=== PATIENT | male | born 1955 | race Caucasian/White ===

== ENCOUNTER 2021-10-17 14:04 | Emergency (ER) | payer OTHER, SELFPAY ==
--- NOTE | ~2021-10-17 | XR_ITS ---
EXAMINATION: XR KNEE, LEFT CLINICAL INFORMATION: Foreign body COMPARISON: None TECHNIQUE: Four views of the left knee. FINDINGS: Positive for foreign body. This is felt to lie within the soft tissues of the infrapatellar region. Part of this foreign body could be within the joint. This foreign body is linear measuring 2.1 cm. Courses anterior to posterior Foreign body is Approximately 1 to 2 mm deep to the skin layer. No bony fracture is seen. XR/XR knee LT 4V IMPRESSION: Linear foreign body anteriorly as described
[2021-10-17 14:09] VITALS: BP 125/83; PULSE 81; RESP 18; TEMP 37; O2SAT 100; BMI 31.0
--- NOTE | 2021-10-17 15:01 | ED.LOWEXIN ---
HPI - Extremity Injury (Lower) General Chief Complaint: Extremity Injury, Lower Stated Complaint: pw needle at work Time Seen by Provider: 10/17/21 14:54 Source: patient Mode of arrival: wheelchair Limitations: no limitations History of Present Illness HPI Narrative: Patient presents to the emergency department coming from [employer]. Today while at work, patient kneeled on the ground, believe a sewing needle went into his right knee and proke off. Reports he can feel something in the front of his knee by the knee cap, painful to walk on. Reports last tetanus vaccine 2 years ago. Related Data Previous Rx's Medication Instructions Recorded cephalexin 500 mg capsule 500 mg PO QID 7 Days #28 cap 10/17/21 doxycycline hyclate 100 mg capsule 100 mg PO BID 7 Days #14 cap 10/17/21 tramadol 50 mg tablet 50 mg PO BID PRN #7 tab 10/17/21 Allergies Allergy/AdvReac Type Severity Reaction Status Date / Time ibuprofen [From Motrin] AdvReac Stomach Verified 10/17/21 14:10 Upset Review of Systems Review of Systems: Constitutional: No weight loss, fever, chills, weakness or fatigue. Skin: No rash or itching. Cardiovascular: No chest pain. No palpitations. Respiratory: No shortness of breath, cough or sputum production. Musculoskeletal: No muscle pain, back pain. Positive knee pain Psychiatric: No depression or anxiety. Yes all other systems are reviewed and are negative [facility] Past Medical History Attestation statement: The following information was validated with the patient. Source: old records reviewed Social History Social History Advance Directives: No Advance Directives Information Provided: No Physical Exam Vital Signs: Vital Signs: Last Vital Signs Temp 98.6 F 10/17/21 14:09 Pulse 81 10/17/21 14:09 Resp 18 10/17/21 14:09 BP 125/83 10/17/21 14:09 Pulse Ox 100 10/17/21 14:09 BMI result Body Mass Index 31.0 Vital signs have been reviewed as normal and appeared to be correct. Blood pressure normal.? Heart rate normal.? Respiration rate normal. Temperature normal.? Oxygen saturation normal. Appearance: Alert.?Oriented to person, place and time. No acute distress.?Normal affect. Eyes: Pupils equal, round and reactive to light.? ENT: Pharynx normal.?? Neck: Normal inspection.? Neck supple.?? CVS: Heart sounds normal. Normal heart rate and rhythm.? Pulses normal.?? Respiratory: No respiratory distress.? Lung sounds clear to auscultation bilaterally?? Abdomen: Soft and non-tender. Skin: Skin warm and dry.? Normal skin color.? Extremities: No lower extremity edema.? Left knee with point tenderness to the medial infrapatellar region, area concerning for possible palpable foreign body Neuro: Moves all extremities spontaneously. Sensation intact bilaterally. No motor deficits. Ambulates with normal steady gait. Course Course Course Narrative: Patient is a 66-year-old male no past medical history of arthritis presenting for evaluation of acute left knee pain after injury while at work. Patient is concern for possible retained foreign body, a sewing needle. Will obtain x-ray for further evaluation. Patient is up-to-date on tetanus. No current erythema, warmth, swelling, or effusion present. Reevaluation(s) Reevaluation #1: X-ray imaging positive for foreign body, thought to be within the soft tissues of the infrapatellar region, possibly within the joint space, measures 2.1 cm. I consulted orthopedics, Liza VALENCIA, who recommends no further imaging required at this time, and advised outpatient follow-up for further evaluation and treatment. Patient provided with crutches, advised to use Tylenol as needed for pain, provided with a new prescription for tramadol to use if Tylenol is not helping, advised not to drive or operate machinery for 8 hours after taking this medication, Aris provided with antibiotics Keflex and doxycycline for infection prophylaxis, discussed reasons to return back to emergency department, patient to follow-up with orthopedics outpatient. Time: 15:45 MDM - Extremity Injury (Lower) Medical Records Attestation: I reviewed the patient's medical records. Imaging Data XR knee: Radiologist's impression: FINDINGS: Positive for foreign body. This is felt to lie within the soft tissues of the infrapatellar region. Part of this foreign body could be within the joint. This foreign body is linear measuring 2.1 cm. Courses anterior to posterior Foreign body is Approximately 1 to 2 mm deep to the skin layer. No bony fracture is seen.? XR/XR knee LT 4V IMPRESSION: Linear foreign body anteriorly as described Discharge Plan Discharge Clinical Impression: Foreign body of left knee Patient Disposition: Home, Self-Care Additional Instructions: The x-ray shows a foreign body to your left knee, You have been given a course of antibiotics, it is important to complete this entire course. You will need to follow-up with orthopedics for removal, you have been provided with their contact information, please call the office tomorrow to schedule appointment. Use crutches to avoid putting weight on the left leg. Prescriptions: New cephalexin 500 mg capsule 500 mg PO QID 7 Days Qty: 28 0RF doxycycline hyclate 100 mg capsule 100 mg PO BID 7 Days Qty: 14 0RF tramadol 50 mg tablet 50 mg PO BID PRN (Reason: pain) Qty: 7 0RF Referrals: Liza Shepherd PA-C [Physician Mobility Developer] - 3 days Interventions: ED Discharge Assessment Last Done: 10/17/21 16:18 Discharge Date/Time: 10/17/21 16:20
== END 2021-10-17 16:20 | disposition home or self-care (01) ==
PROVIDERS: Emergency Provider Emergency Medicine; PCP Family Medicine
DX: Z04.2 Encounter for examination and observation following work accident (principal); S80.252A Superficial foreign body, left knee, initial encounter; W26.8XXA Contact with other sharp object(s), not elsewhere classified, initial encounter; Y93.9 Activity, unspecified; Y92.63 Factory as the place of occurrence of the external cause; Y99.0 Civilian activity done for income or pay
CPT/HCPCS: 73564; 99283

== ENCOUNTER → 2021-10-19 12:19 | Outpatient (BNVA) | payer OTHER, SELFPAY | PROVIDERS: PCP Family Medicine; Visit Provider Physician Assistant | DX: S80.252A Superficial foreign body, left knee, initial encounter (principal) | CPT/HCPCS: 99202 ==

== ENCOUNTER 2021-10-24 05:56 | Day surgery (SDC) | payer OTHER, SELFPAY ==
--- NOTE | 2021-10-23 08:12 | HO.ANESPROP2 ---
Documented by User: Amina Ashley NP 10/23/21 08:12 HPI - Anesthesia Eval Consult details Narrative: 66yo M for Left Foreign Body Removal from knee PMFSH Active Problems Active Problems: All Active Problems (Updated 10/19/21 @ 13:59 by Liza Shepherd PA-C) Foreign body of left knee (Acute) Past Medical History Medical History (Updated 10/19/21 @ 13:59 by Liza Shepherd PA-C) Hypertension Surgical History Surgical History (Updated 10/24/21 @ 06:23 by Nusrat Conner RN) History of mandibular surgery Hx of colonoscopy Hx of tonsillectomy Social History Social History (Updated 10/19/21 @ 12:24 by Marleny Bravo CMA) Patient Tobacco Use Status: Former Tobacco user Are you DNR?: No Advance Directives: No Advance Directives Information Provided: Yes Current occupational status: employed Current occupation: [employer] Allergies Allergy/AdvReac Type Severity Reaction Status Date / Time ibuprofen [From Motrin] AdvReac Stomach Verified 10/17/21 14:10 Upset Home Medications Medication Instructions Recorded Confirmed Last Taken Type lisinopril 20 2 tab PO DAILY 10/24/21 10/24/21 10/23/21 History mg-hydrochlorothiazide 12.5 mg tablet Exam Exam Date and Time: October 23, [id number] Assessment and Plan Assessment Anesthesia Assessment: Chart Reviewed Documented by User: Goyo Tolbert MD 10/24/21 17:38 PMFSH Past Medical History Medical History (Updated 10/19/21 @ 13:59 by Liza Shepherd PA-C) Hypertension Family History Family history of problems with anesthesia: No Surgical History Surgical History (Updated 10/24/21 @ 06:23 by Nusrat Conner RN) History of mandibular surgery Hx of colonoscopy Hx of tonsillectomy History of Problems with Anesthesia: No Social History Social History (Updated 10/19/21 @ 12:24 by Marleny Bravo CMA) Patient Tobacco Use Status: Former Tobacco user Are you DNR?: No Advance Directives: No Advance Directives Information Provided: Yes Current occupational status: employed Current occupation: [employer] Allergies Allergy/AdvReac Type Severity Reaction Status Date / Time ibuprofen [From Motrin] AdvReac Stomach Verified 10/17/21 14:10 Upset Home Medications Medication Instructions Recorded Confirmed Last Taken Type lisinopril 20 2 tab PO DAILY 10/24/21 10/24/21 10/23/21 History mg-hydrochlorothiazide 12.5 mg tablet Exam Airway Mallampati Class: III TM Dist: >3cm Neck ROM: Full Loose/Missing/Broken Teeth: Yes (Chipped , poor dentition , caps ) Heart: S1, S2 Lungs: b/l breath sounds Assessment and Plan Assessment Anesthesia Assessment: Anesthesia Plan Discussed Final Anesthetic Review Family History of Problems with Anesthesia: No History of Problems with Anesthesia: No NPO: Yes ASA Class: II Final Preanesthetic Review: Meds/Allgs Chart Reviewed, Consent Obtained/Reviewed and Anes Risks/Benef Reviewed Patient Risk: Intermediate Procedure Risk: Intermediate Anesthetic Plan Anesthetic Plan: MAC: Disposition: Standard PACU
[2021-10-24 06:04] VITALS: BP 168/95; PULSE 64; RESP 17; TEMP 36.1; O2SAT 96; BMI 31.0
[2021-10-24] MEDS: Lactated Ringers 1,000 ML 100 ML IVCONT (06:31)
--- NOTE | 2021-10-24 07:34 | MHC.SHP ---
Pre-Procedural Eval Section A Date of Service: 10/24/21 The patient is an INPATIENT: No Changes since office visit: Yes Patient answered all questions; No Cold of Flu in the past 2 weeks, No New Medical Problems and No Changes in Medication The History & Physical has been completed within 30 days and I have reviewed it.: Yes Section B Chief Complaint: foreign body left knee Allergies: Allergies Allergy/AdvReac Type Severity Reaction Status Date / Time ibuprofen [From Motrin] AdvReac Stomach Verified 10/17/21 14:10 Upset Plan I have reviewed the history and physical and performed a pertinent physical examination on my patient. No changes have occurred unless specified.
[2021-10-24 09:03] VITALS: BP 122/69; PULSE 70; RESP 16; TEMP 36.9; O2SAT 98
[2021-10-24 09:21] VITALS: BP 116/76; PULSE 67; RESP 16; TEMP 37.1; O2SAT 96
--- NOTE | 2021-10-24 10:43 | P.BOP_ITS ---
Brief Operative Note Date of Service: 10/24/21 Pre-op diagnosis: foreign body left knee Post-op diagnosis: same Procedure: removal of foreign body , deep, left knee intra-operative use of microscope Surgeon: Mark Juarez MD Anesthesia: MAC and local Was an Senior Reactor Operator used for this Procedure?: No Estimated blood loss (mL): 20 IV fluids (mL): 500 Pathology: other (foreign body) Condition: stable Disposition: PACU
--- NOTE | 2021-10-26 15:38 | W.PM.OPN ---
Operative Note Operative Note Date of Service: 10/24/21 Narrative: Date of Service: 10/24/21 Pre-op diagnosis: foreign body left knee Post-op diagnosis: same Procedure: removal of foreign body , deep, left knee intra-operative use of microscope Surgeon: Mark Juarez MD Anesthesia: MAC and local Was an Community Relations Coordinator used for this Procedure?: No Estimated blood loss (mL): 20 IV fluids (mL): 500 Pathology: other (foreign body) Condition: stable Disposition: PACU Procedure in detail: Patient was brought to the operating room and under sedation local was injected around his left patellar tendon. There was a foreign body evident on x-ray but I could not appreciate using ultrasound her visual inspection. Therefore the microscope was brought in and a 1.5 cm incision was made over the area involvement. Dissection was taken down to the patellar tendon and then under microscopic visualization I was able to see a rent in the tendon and through careful dissection was able to visualize a very small tip of the needle that had penetrated the patellar tendon. This was removed. I then irrigated copiously and closed the skin with absorbable suture and skin glue. Patient was placed in sterile dressing extubated brought to recovery room stable condition there were no known complications.
== END 2021-10-24 10:10 | disposition home or self-care (01) ==
PROVIDERS: PCP Family Medicine; Visit Provider Orthopaedic Surgery
PROC: (CPT 27372; principal; 2021-10-24 07:30)
DX: S80.252A Superficial foreign body, left knee, initial encounter (principal); X50.1XXA Overexertion from prolonged static or awkward postures, initial encounter; Y93.89 Activity, other specified; Y92.69 Other specified industrial and construction area as the place of occurrence of the external cause; Y99.0 Civilian activity done for income or pay; I10 Essential (primary) hypertension; Z79.899 Other long term (current) drug therapy; Z88.8 Allergy status to other drugs, medicaments and biological substances; Z87.891 Personal history of nicotine dependence
CPT/HCPCS: 27372; 88300; J0690; J1100; J2250; J2405; J3010

== ENCOUNTER → 2021-11-05 12:08 | Outpatient (BNVA) | payer OTHER, SELFPAY | PROVIDERS: PCP Family Medicine; Visit Provider Physician Assistant | DX: S80.252A Superficial foreign body, left knee, initial encounter (principal) ==

== ENCOUNTER → 2024-04-15 09:28 | Outpatient (BNVA) | payer OTHER, SELFPAY | PROVIDERS: PCP Family Medicine; Visit Provider Physician Assistant Medical | DX: S40.012A Contusion of left shoulder, initial encounter (principal); S50.02XA Contusion of left elbow, initial encounter; S20.212A Contusion of left front wall of thorax, initial encounter; S51.012A Laceration without foreign body of left elbow, initial encounter; W18.09XA Striking against other object with subsequent fall, initial encounter | CPT/HCPCS: 71101; 73030; 73080; 99204 ==

== ENCOUNTER → 2024-04-26 08:55 | Outpatient (BNVA) | payer OTHER, SELFPAY | PROVIDERS: PCP Family Medicine; Visit Provider Physician Assistant Medical | DX: S40.012A Contusion of left shoulder, initial encounter (principal); S80.02XA Contusion of left knee, initial encounter; S50.02XA Contusion of left elbow, initial encounter; S20.212A Contusion of left front wall of thorax, initial encounter; W18.09XA Striking against other object with subsequent fall, initial encounter | CPT/HCPCS: 99213 ==

== ENCOUNTER → 2024-05-10 08:41 | Outpatient (BNVA) | payer OTHER, SELFPAY | PROVIDERS: PCP Family Medicine; Visit Provider Physician Assistant Medical | DX: S40.012D Contusion of left shoulder, subsequent encounter (principal); S50.02XD Contusion of left elbow, subsequent encounter; S20.211D Contusion of right front wall of thorax, subsequent encounter; S80.01XD Contusion of right knee, subsequent encounter; S51.012D Laceration without foreign body of left elbow, subsequent encounter; S93.492D Sprain of other ligament of left ankle, subsequent encounter; W18.09XD Striking against other object with subsequent fall, subsequent encounter | CPT/HCPCS: 99213 ==

== ENCOUNTER 2024-05-17 07:56 | Outpatient (AMB) | payer OTHER, SELFPAY ==
--- NOTE | 2024-05-17 08:28 | A.OFFVIS_ITS ---
Intake Visit Reasons: New prob- LT high ankle injury Intake Note: Vega is a 68 year old male who presents to the office today for a LT ankle and martinez injury, DOI 04/14/24. Patient states his right foot got stuck in a pallet and he twisted and fell on his left side. Patient states he is still having pain and swelling when walking to much. He has tried wrapping his ankle with no relief. Denies numbness and tingling. *[employer]: walking for 12 - 13hrs a day* Allergies ibuprofen [From Motrin] Adverse Reaction (Verified 05/17/24 08:36) Stomach Upset HPI HPI New prob- LT high ankle injury: Details: 68-year-old male who presents in the office today, for an evaluation of left ankle injury. The patient was seen in the [facility] on 05/11/24, status post a twist and fall which occurred on 04/14/24. His right foot got stuck between the pallet and fell on his left side. He started having left shoulder, left elbow and left ankle pain after the fall. He was recommended to take Tylenol 1000 mg for pain relief. He was referred to [facility] Orthopedics for further evaluation. While in the office today, the patient reports persistent pain and edema in the left ankle with prolonged ambulation. He has tried wrapping his ankle without any relief. He denies any numbness or tingling. The patient works in a [employer] and states he will be ambulating 12-13 hours a day. [facility] Medical History Hypertension Surgical History History of mandibular surgery Hx of colonoscopy Hx of tonsillectomy Social History (Updated 05/17/24 @ 08:38 by Grace Farr) Patient Tobacco Use Status: Former Tobacco user Current occupational status: employed Current occupation: [employer] Review of Systems Const All systems reviewed & are unremarkable except as noted in HPI and below Physical Exam Const General: cooperative, healthy appearing and no acute distress Resp Effort & Inspection: normal respiratory effort and able to speak in complete sentences Cardio Rate: regular rate Peripheral pulses: Peripheral pulses 2+ throughout GI Palpation (GI): Soft to palpation Skin Lesions: no lesions Rashes: no rashes Extrem Other: Left ankle: Normal to inspection. No ecchymosis, erythema, or edema. The patient is able to demonstrate dorsiflexion, plantar flexion, pronation and supination. Pain with the anterior drawer. Sensation intact. Pedal pulse intact. Assessment & Plan Assessment & Plan (1) Osteoarthritis of left ankle: Code(s): M19.072 - Primary osteoarthritis, left ankle and foot Category: Medical (2) Left ankle sprain: Code(s): S93.402A - Sprain of unspecified ligament of left ankle, initial encounter Category: Medical Plan Mr. Quarles is a 68-year-old male who presents in the office today, for an evaluation of left ankle injury. The patient was seen in the [facility] on 05/11/24, status post a twist and fall which occurred on 04/14/24. His right foot got stuck between the pallet and fell on his left side. He started having left shoulder, left elbow and left ankle pain after the fall. He was recommended to take Tylenol 1000 mg for pain relief. He was referred to [facility] Orthopedics for further evaluation. While in the office today, the patient reports persistent pain and edema in the left ankle with prolonged ambulation. He has tried wrapping his ankle without any relief. He denies any numbness or tingling. The patient works in a [employer] and states he will be ambulating 12-13 hours a day. The patient was provided a tall walking boot, off the shelf. He was given an instruction that he should wear the boot while at work and to remain out of the brace when he is at home to work on ankle range of motion. Ankle range of motion exercises were demonstrated to the patient while in the office today. He was referred to physical therapy. An order for an MRI of the left ankle was placed today to further evaluate the integrity of the ankle and surrounding structures. He will continue to remain on the same work restrictions. Follow-up will be 6 weeks, or sooner if needed. X-rays of the left ankle, which were obtained while in the office today and were reviewed by me, Mamta Cummings PA-C, revealed: Negative for any fracture or dislocation. Significant for osteoarthritis. Orders: Orders ankle LT wo con 05/17/24 M19.072 - Primary osteoarthritis, left ankle and foot, S93.402A - Sprain of unspecified ligament of left ankle, initial encounter XR ankle LT min 3V 05/17/24 M25.579 - Pain in unspecified ankle and joints of unspecified foot PT Evaluation and Treatment 05/17/24 M19.072 - Primary osteoarthritis, left ankle and foot, S93.402A - Sprain of unspecified ligament of left ankle, initial encounter Patient Instructions: Scribed by Dyan Guzmán medical biller, for Mamta Cummings PA-C on 05/17/24 at 8:47 am EST. Coding Level of Care Code Est Pt Level 3 (64321) Complex EM visit Add On G2211 Diagnoses Osteoarthritis of left ankle M19.072 Left ankle sprain S93.402A
== END 2024-05-17 09:05 | disposition home or self-care (01) ==
PROVIDERS: PCP Family Medicine; Visit Provider Physician Assistant
DX: M19.072 Primary osteoarthritis, left ankle and foot (principal); S93.402A Sprain of unspecified ligament of left ankle, initial encounter
CPT/HCPCS: 99213; G2211

== ENCOUNTER 2024-05-17 08:55 | Outpatient (REF) | payer OTHER, SELFPAY ==
--- NOTE | ~2024-05-17 | XR_ITS ---
EXAMINATION: XR LEFT ANKLE CLINICAL INFORMATION: Pain in unspecified ankle and joints of unspecified foot M25.579. COMPARISON: None available TECHNIQUE: AP, lateral, and mortise views of the left ankle. FINDINGS: No fracture. Alignment is anatomic. No erosions. Joint spaces are maintained. Soft tissues are normal. Small inferior calcaneal spur. XR/XR ankle LT min 3V IMPRESSION: 1. No fracture. 2. Small inferior calcaneal spur. Electronically signed by: Alicia Lorenz MD 05/30/2024 12:03 PM NAB[facility]
== END 2024-05-17 08:56 | disposition home or self-care (01) ==
LOC: HO.HOSX 08:55
PROVIDERS: Visit Provider Physician Assistant
DX: M25.572 Pain in left ankle and joints of left foot (principal); M19.072 Primary osteoarthritis, left ankle and foot; S93.402A Sprain of unspecified ligament of left ankle, initial encounter
CPT/HCPCS: 73610; 99212

== ENCOUNTER 2024-05-28 06:39 | Outpatient (RCR) | payer OTHER, SELFPAY ==
--- NOTE | 2024-05-17 08:52 | MHC.PT.EP ---
[facility] [place] [facility] [place] [facility] [place] [facility] [address] [phone] F: [phone] F: [phone] F: [phone] F: [phone] Physical Therapy Plan of Care Date of Evaluation: 05/17/24 Date of Surgery: Diagnosis: Fall L shoulder contusion/ derangement, L knee injury, L high ankle sprain. Assessment: Pt is a 68 y/o RHD male with Hx of HTN referred to PT for eval and treat after fall at work 1 month ago with emphasis on his L shoulder; Pt reports initially had a large hematoma of his lateral L arm though this is largely resolved he persists with decreased tolerance and ability for reaching high shelves, dressing pullovers, lifting objects of weight, laying on L shoulder, and disturbed sleep secondary to decreased L shoulder ROM and strength, increased tissue tension L scapular mms, TTP of L Teres area and anterior L shoulder and pain with activity. Pt is deemed an appropriate candidate to receive skilled PT services to address their physical impairments in order to improve their functional ability. Frequency and Duration: The patient will be seen 2 x / wk x 4 wks. Short Term Goals: Initiate home program. Improve baseline pain to <5/10; initial 7-9/10. Snf Goals: I with home program. Pt will be able to place object on high shelf with managed Sx; initial: 6/10 difficulty, Pt will report no longer disturbed of sleep d/t shoulder pain; initial 1/4 disturbed. Pt will be improve L shoulder IR strength by at least 1/2 MMT grade; initial 4-/5 and painful. Improve SPADI outcome measure by at least 13 points. Treatment Plan: Modalities to reduce pain, spasms and effusion. Manual therapy to restore motion and function. Therapeutic exercise to improve strength and flexibility. Neuromuscular re-education for posture and balance. Therapeutic activities to return to functional activities of daily living. Electronically signed by: Josh Rosas PT. Please sign and return to therapist. Thank you for your referral.
== END 2025-05-18 08:56 | disposition home or self-care (01) ==
LOC: HO.PT 06:39
PROVIDERS: PCP Family Medicine; Visit Provider Physician Assistant Medical
DX: S40.012A Contusion of left shoulder, initial encounter (principal); Z91.81 History of falling; M25.562 Pain in left knee; S93.402A Sprain of unspecified ligament of left ankle, initial encounter
CPT/HCPCS: 97110; 97161

== ENCOUNTER → 2024-05-31 08:34 | Outpatient (BNVA) | payer OTHER, SELFPAY | PROVIDERS: PCP Family Medicine; Visit Provider Physician Assistant Medical | DX: S40.012D Contusion of left shoulder, subsequent encounter (principal); S50.02XD Contusion of left elbow, subsequent encounter; S20.212D Contusion of left front wall of thorax, subsequent encounter; S80.02XD Contusion of left knee, subsequent encounter; S93.402D Sprain of unspecified ligament of left ankle, subsequent encounter; M24.812 Other specific joint derangements of left shoulder, not elsewhere classified; W18.09XD Striking against other object with subsequent fall, subsequent encounter | CPT/HCPCS: 99213 ==

== ENCOUNTER 2024-06-05 09:03 | Outpatient (REF) | payer OTHER, SELFPAY ==
--- NOTE | ~2024-06-05 | MR_ITS ---
CLINICAL HISTORY: S93.402A - Sprain of unspecified ligament of left ankle, initial encounter MR left ankle without gadolinium Comparison: DX/NE/SR - XR ANKLE LT MIN 3V - 05/17/24 08:00 EST Findings: No acute fractures. No pathologic bone lesions. Mild subchondral degenerative marrow edema and microcyst formation within the anteroinferior tibia adjacent to the tibiotalar joint. Periarticular osteophyte formation at the talonavicular joint. No joint effusion. Intact anterior and posterior talofibular, calcaneofibular, and deltoid ligaments. Small amount of fluid surrounds the tibialis posterior, flexor digitorum longus, flexor hallucis longus, peroneus longus and brevis tendons. There is split type tearing of the peroneus brevis tendon.Flexor, extensor, and peroneal tendons are otherwise intact. Multiple small high T2 intensity foci within the Achilles tendon Intact plantar fascia. IMPRESSION: 1. Split type tearing of the peroneus brevis tendon. 2. Tenosynovitis of the medial and lateral flexor tendons. 3. Tibiotalar and talonavicular joint osteoarthritis. 4. Low-grade tears of the Achilles tendon. This document has been electronically signed by: Isabell Ash MD on 06/07/2024 17:52:58
--- NOTE | ~2024-06-05 | MR_ITS ---
CLINICAL HISTORY: DERANGEMENT AND CONTUSION MR left shoulder without gadolinium Comparison: DX/SR - XR SHOULDER LT MIN 2V - 04/15/24 11:31 EST Findings: No acute fracture or pathologic bone lesion. Moderate periarticular osteophyte formation at the acromioclavicular joint. Mild periarticular osteophyte formation at the glenohumeral joint. Type II acromion. No effusion. There is full-thickness tearing with medial retraction and atrophy of the entire supraspinatus tendon at the critical zone. Moderate grade intrasubstance and articular surface tearing of the anterior and mid infraspinatus tendon at the humeral insertion site extending to the musculotendinous junction. Subscapularis tendon is intact. The long head of biceps is intact. There is irregularity and high T2 signal intensity within the posterior superior labrum. IMPRESSION: 1. Full-thickness tearing and atrophy of the supraspinatus tendon. 2. Partial-thickness tearing of the infraspinatus tendon. 3. Acromioclavicular and glenohumeral joint osteoarthritis. 4. Findings suggestive of posterior superior labral tearing. This document has been electronically signed by: Isabell Ash MD on 06/07/2024 16:43:55
== END 2024-06-05 09:04 | disposition home or self-care (01) ==
LOC: HO.MRI 09:03
PROVIDERS: PCP Family Medicine; Visit Provider Internal Medicine
DX: M19.072 Primary osteoarthritis, left ankle and foot (principal); S40.012A Contusion of left shoulder, initial encounter
CPT/HCPCS: 73221; 73721

== ENCOUNTER → 2024-06-05 09:42 | Outpatient (BNV) | payer OTHER, SELFPAY | PROVIDERS: PCP Family Medicine; Visit Provider Radiology Diagnostic Radiology | DX: S43.432A Superior glenoid labrum lesion of left shoulder, initial encounter (principal); S93.402A Sprain of unspecified ligament of left ankle, initial encounter | CPT/HCPCS: 73221; 73721 ==

== ENCOUNTER → 2024-07-02 12:14 | Outpatient (BNVA) | payer OTHER, SELFPAY | PROVIDERS: PCP Family Medicine; Visit Provider Orthopaedic Surgery | DX: M75.102 Unspecified rotator cuff tear or rupture of left shoulder, not specified as traumatic (principal) | CPT/HCPCS: 99212 ==

== ENCOUNTER 2024-07-23 11:13 | Outpatient (AMB) | payer OTHER, SELFPAY ==
--- NOTE | 2024-07-23 11:38 | A.OFFVIS_ITS ---
Intake Visit Reasons: OV - left ankle OA, DOI 04/14/24 Intake Note: Vega is a 68 year old male who presents to the office today for a follow up of his left ankle OA, DOI 04/14/24. Patient states he is feeling better. He notices that PT gave him relief. Allergies ibuprofen [From Motrin] Adverse Reaction (Verified 07/23/24 11:41) Stomach Upset HPI HPI OV - left ankle OA, DOI 04/14/24: Details: Mr. Quarles is a 69-year-old male presents to the office today for routine follow-up of left ankle sprain. At his last appointment on 06/25/2024 we reviewed his MRI and the patient continued with physical therapy in the tall walking boot. He has been attending physical therapy and has noted some mild improvement. [facility] Medical History Hypertension Surgical History History of mandibular surgery Hx of colonoscopy Hx of tonsillectomy Social History Patient Tobacco Use Status: Former Tobacco user Current occupational status: employed Current occupation: [employer] Review of Systems Const All systems reviewed & are unremarkable except as noted in HPI and below Physical Exam Const General: cooperative, healthy appearing and no acute distress Resp Effort & Inspection: normal respiratory effort and able to speak in complete sentences Cardio Rate: regular rate Peripheral pulses: Peripheral pulses 2+ throughout Skin Lesions: no lesions Rashes: no rashes Extrem Other: Left ankle: Normal to inspection. No ecchymosis, erythema, or edema. Patient is able to demonstrate dorsiflexion, plantar flexion, pronation and supination. Negative anterior drawer. Sensation intact. Pedal Pulse intact. Assessment & Plan Assessment & Plan (1) Left ankle sprain: Code(s): S93.402A - Sprain of unspecified ligament of left ankle, initial encounter Category: Medical (2) Osteoarthritis of left ankle: Code(s): M19.072 - Primary osteoarthritis, left ankle and foot Category: Medical Plan Mr. Quarles is a 69-year-old male presents to the office today for routine follow-up of left ankle sprain. At his last appointment on 06/25/2024 we reviewed his MRI and the patient continued with physical therapy in the tall walking boot. He has been attending physical therapy and has noted some mild improvement. While the office today, the patient was educated to discontinue the tall walking boot at this time and transition to a supportive walking shoe. He will continue to attend physical therapy until all sessions are complete. There is no additional orthopedic intervention warranted at this time. He will follow up p.r.n., sooner if needed. Coding Level of Care Code Est Pt Level 3 (95391) Diagnoses Left ankle sprain S93.402A Osteoarthritis of left ankle M19.072
== END 2024-07-23 11:47 | disposition home or self-care (01) ==
PROVIDERS: PCP Family Medicine; Visit Provider Physician Assistant
DX: S93.402A Sprain of unspecified ligament of left ankle, initial encounter (principal); M19.072 Primary osteoarthritis, left ankle and foot
CPT/HCPCS: 99213

== ENCOUNTER → 2024-07-23 11:13 | Outpatient (BNVA) | payer OTHER, SELFPAY | PROVIDERS: PCP Family Medicine; Visit Provider Physician Assistant | DX: S93.402D Sprain of unspecified ligament of left ankle, subsequent encounter (principal); M19.072 Primary osteoarthritis, left ankle and foot | CPT/HCPCS: 99212 ==

== ENCOUNTER 2024-08-02 08:00 | Outpatient (RCR) | payer OTHER, SELFPAY ==
--- NOTE | 2024-07-12 13:12 | MHC.PT.EP ---
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 OF NOTE, HE IS SCHED FOR Lt RTC REPAIR IN 08/2024. OBJECTIVELY, THE Pt HAS DECR ROM Lt ANKLE, LIMITED FLEXIB IN HIPS, (+) LUMBOPELVIC ASYM W LLI INFLUENCE FROM BOOT, STRENGTH DEFICITS IN Lt DISTAL LE, AND FLUCTUATING SORENESS Lt ANTERIOR/ LAT ANKLE. HE IS WORKING REGULAR HOURS (12-13 HR SHIFTS / 4 DAYS / WK A MGR AT [employer]) -> HE NOTES DOES USE A GOLF CART AT WORK TO GET AROUND THE PLANT. FUNCTIONALLY, THE Pt HAS ALTERED GAIT, DECR SQUAT MECH, LIMITED STANDING/ WALKING MEY.. DECR MEY FOR MORE DYNAMIC ADLs. VU IS A DECENT CANDIDATE FOR PT TO ADDRESS THE ABOVE FINDINGS AND GUIDE HIM IN INCR HIS FUNCT INDEPENDENCE. Frequency and Duration: The patient will be seen 2 x WK x 6 WKS Short Term Goals: DECR Lt DISTAL LE/ ANKLE PAIN TO 2-3/10 INITIATE HEP INCR AROM Lt ANKLE; JOSE HIP FLEXIB Lt BOOT WEAN IN 2-3 WEEKS (PER WILFRIDO LANGE,PAC) INCR CORE ENGAGEMENT/ PROX LEs STRENGTH Chief Cook Goals: Pt INDEP W HEP AND SELF SX MGMT TECHN Pt DEMON EFFICIENT GAIT MECH W/O Lt AIRCAST BOOT Pt MAGAN SLS Lt x 15 SEC Pt INCR FUNCTIONAL ACTIVITY MEY EVIDENT W IMPROVED LEFI SCORE , AT EVAL 36/80 WFL STRENGTH Lt LE Treatment Plan: Modalities to reduce pain, spasms and effusion. Manual therapy to restore motion and function. Therapeutic exercise to improve strength and flexibility. Neuromuscular re-education for posture and balance. Therapeutic activities to return to functional activities of daily living. Electronically signed by: STEPHNAE CASTRO PT Please sign and return to therapist. Thank you for your referral.
--- NOTE | 2024-09-06 07:58 | MHC.PT.DC ---
[facility] [place] Office [place] Office [place] Office [address] Evita Marques [address] [phone] F: [phone] F: [phone] F: [phone] F: [phone] Physical Therapy Discharge Report Diagnosis: LEFT ANKLE LIGAMENT SPRAIN-> WEAN OUT OF BOOT IN THE NEXT 2-3 WEEKS Date of Surgery: DOI 04/15/24 Date of Evaluation: 07/12/24 Date of Discharge: 09/06/24 Treatments to Date: 5 Cancellations to Date: 4 No Shows to Date: 0 Discharge Status: Improved Function Independent with HEP Discharge Summary: VU DISPLAYED PROGRESS IN PT, ADDRESSING HIS LEFT ANKLE SPRAIN- HE HAS A HEP AND MORE EFFICIENT GAIT MECH/ IMPROVED FUNCTIONAL MOBILITY TOLERANCE. HE DID NOT ATTEND HIS LAST FEW SCHED APPTS AND, THERFORE, A REASSESSMENT WAS NOT PERFORMED. Electronically signed by: STEPHANE CASTRO, PT Please sign and return to therapist. Thank you for your referral.
== END 2024-09-06 07:59 | disposition home or self-care (01) ==
LOC: HO.PT 08:00
PROVIDERS: PCP Family Medicine; Visit Provider Physician Assistant
DX: S93.402A Sprain of unspecified ligament of left ankle, initial encounter (principal); W18.31XA Fall on same level due to stepping on an object, initial encounter
CPT/HCPCS: 97110; 97112; 97140; 97162

== ENCOUNTER 2024-08-26 09:14 | Outpatient (AMB) | payer OTHER, SELFPAY ==
--- NOTE | 2024-08-26 09:16 | A.OFFVIS_ITS ---
Vital Signs 08/26/24 09:27 Height 5 ft 8 in Weight 215 lb BMI 32.7 Handedness Right Intake Visit Reasons: Pre-Lt RTC 09/01/24 Intake Note: Vega is a 69 year old right hand dominant male who presents today for a pre operative appointment. He is booked for a Left Rotator Cuff Repair 09/01/[address] Juarez. Patient was provided with the Pain Management Agreement to review and sign. Patient was fitted for his ultra sling. Allergies ibuprofen [From Motrin] Adverse Reaction (Verified 08/26/24 09:26) Stomach Upset HPI HPI Pre-Lt RTC 09/01/24: Details: Mr. Quarles is a 69-year-old male who presents to the office today for preoperative history and physical exam pending left shoulder rotator cuff repair on 09/01/[address] Juarez. He has a PMH significant for HLD, HTN, GERD, and chronic constipation. Additionally, he does have an ?allergy to ibuprofen but this causes GI upset in the setting of GERD. [facility] Medical History (Updated 08/17/24 @ 09:42 by Meg Hickey RN) GERD (gastroesophageal reflux disease) Varicose vein of leg Osteoarthritis HLD (hyperlipidemia) Hypertension Surgical History (Updated 08/17/24 @ 09:42 by Meg Hickey RN) H/O left knee surgery (09/2021) Hx of tonsillectomy History of mandibular surgery (~1980) Hx of colonoscopy Social History Housing: House Are you a primary health care technician to a significant other at home: No Do you presently have visiting nurse or other home services: No Patient Tobacco Use Status: Former Tobacco user Tobacco use type: Cigarette Current occupational status: employed Current occupation: [employer] Review of Systems Const All systems reviewed & are unremarkable except as noted in HPI and below Physical Exam Vital Signs: BMI result Body Mass Index 32.7 Const General: cooperative, healthy appearing, no acute distress and well groomed Orientation/consciousness: oriented to person and oriented to place HEENT Head: Yes normal to inspection, Yes normocephalic and Yes atraumatic Eyes General: appearance normal, both eyes and all related structures Alignment and Position: alignment normal Conjunctivae: conjunctivae normal EOM: EOMs intact bilaterally Neck Neck: Yes normal visual inspection and Yes trachea midline Resp Other: No rerpiratory distress Effort & Inspection: normal respiratory effort and able to speak in complete sentences Cardio Other: Palpable radial pulse with no appreciable rythmic abnormalities GI Other: No abdominal distension Back/Spine/Pelvis Cervical Spine: normal cervical lordosis and cervical ROM normal Skin General skin exam: no rashes or lesions noted Neuro General: oriented to person, oriented to place and gait normal Extrem Other: Full passive range of motion left shoulder. Active abduction to 90 with recruitment. Forward flexion to 110. External rotation to 35. Internal rotation L5. He has a positive Whelan and Neer and 4/5 empty can with negative lag and negative lift-off Assessment & Plan Assessment & Plan (1) Rotator cuff tear, left: Code(s): M75.102 - Unspecified rotator cuff tear or rupture of left shoulder, not specified as traumatic Category: Medical Plan Mr. Quarles is a 69-year-old male who presents to the office today for preoperative history and physical exam pending left shoulder rotator cuff repair on 09/01/[address] Juarez. He has a PMH significant for HLD, HTN, GERD, and chronic constipation. Additionally, he does have an ?allergy to ibuprofen but this causes GI upset in the setting of GERD. I discussed in detail the procedure and what to expect pre and post operatively. We discussed the risks, benefits and alternatives to the surgery as well as the rehabilitation course. The risks; which include, but are not limited to infection, bleeding, nerve injury, ongoing pain, swelling, and stiffness, perioperative risk of injury to bones and soft tissues, and blood clots. Post operative medications were sent to the pharmacy,?Percocet and MS Contin, while in the office today. The patient was instructed that?he?should obtain the prescription prior to surgery but should not consume until after the procedure; as these should only be taken for postoperative pain management. Should the patient take these medications before surgery, a refill will not be sent to the pharmacy until their scheduled refill date.?? Oxycodone-acetaminophen 5-325 mg (Percocet) PO Q4-6H PRN, quantity 42 tabs for 7 days and morphine ER 15 mg (MS Contin) PO Q12H PRN, quantity 6 tabs for 3 days? I?ve answered all questions and with their understanding they have consented to move forward with left shoulder rotator cuff repair to be performed with Dr. Juarez. Ex will be picking him up: Melanie [phone] Medications: New oxycodone-acetaminophen 5-325 mg Partial Fill upon patient request. 1 tab PO Q4-6H 7 days PRN 42 tabs 0RF pain morphine ER (MS Contin) Partial Fill upon patient request. 15 mg PO Q12H 3 days 6 tabs 0RF Coding Level of Care Code Global (60386) Diagnoses Rotator cuff tear, left M75.102
[2024-08-26 09:27] VITALS: BMI 32.7
== END 2024-08-26 09:49 | disposition home or self-care (01) ==
LOC: HO.HOS 09:15
PROVIDERS: PCP Family Medicine; Visit Provider Physician Assistant
DX: M75.102 Unspecified rotator cuff tear or rupture of left shoulder, not specified as traumatic (principal)
CPT/HCPCS: 99024

== ENCOUNTER → 2024-08-26 09:14 | Outpatient (BNVA) | payer OTHER, SELFPAY | PROVIDERS: PCP Family Medicine; Visit Provider Physician Assistant | DX: Z01.818 Encounter for other preprocedural examination (principal); M75.102 Unspecified rotator cuff tear or rupture of left shoulder, not specified as traumatic | CPT/HCPCS: 99212 ==

== ENCOUNTER 2024-09-01 05:40 | Day surgery (SDC) | payer OTHER, SELFPAY ==
[2024-08-17 09:44] VITALS: BMI 32.6
--- NOTE | 2024-08-30 13:51 | HO.ANESPROP2 ---
Documented by User: Amina Ashley NP 08/30/24 13:51 HPI - Anesthesia Eval Consult details Narrative: 69yo M for Left Arthroscopic Rotator Cuff Repair PMFSH Active Problems Active Problems: All Active Problems Rotator cuff tear, left (Acute) Left ankle sprain (Acute) Osteoarthritis of left ankle (Acute) Foreign body of left knee (Acute) Past Medical History Medical History GERD (gastroesophageal reflux disease) Varicose vein of leg Osteoarthritis HLD (hyperlipidemia) Hypertension Family History Family history of problems with anesthesia: No Surgical History Surgical History H/O left knee surgery (09/2021) Hx of tonsillectomy History of mandibular surgery (~1980) Hx of colonoscopy History of Problems with Anesthesia: No Social History Social History Housing: House Are you a primary behavioral health care coordinator to a significant other at home: No Do you presently have visiting nurse or other home services: No Patient Tobacco Use Status: Former Tobacco user Tobacco use type: Cigarette Use of substances other than those prescribed or required for medical reasons: No Have you been hit, kicked, punched, or otherwise hurt by someone within the past year? If so, by whom?: No Are you DNR?: No Advance Directives: No Advance Directives Information Provided: Yes Advance Directives on File: No Nutrition Risks: No Nutritional Risk Poor oral hygiene: No Current occupational status: employed Current occupation: [employer] Meds Allergies Allergy/AdvReac Type Severity Reaction Status Date / Time ibuprofen [From Motrin] AdvReac Stomach Verified 08/26/24 09:26 Upset Home Medications ?Medication ?Instructions ?Recorded ?Confirmed ?Last Taken ?Type lisinopril 20 2 tab PO DAILY 10/24/21 09/01/24 09/01/24 04:30 History mg-hydrochlorothiazide 12.5 mg tablet [place] 3 Fish Oil 08/17/24 08/17/24 08/25/24 History acetaminophen 500 mg capsule 2,000 mg PO BID PRN Pain 08/17/24 09/01/24 09/01/24 04:30 History cetirizine 10 mg tablet (Zyrtec) 10 mg PO DAILY PRN Allergy Symptoms 08/17/24 09/01/24 09/01/24 04:30 History cholecalciferol (vitamin D3) 25 25 mcg PO DAILY 08/17/24 09/01/24 Unknown History mcg (1,000 unit) tablet (Vitamin D3) flaxseed oil 1,000 mg capsule 1,000 mg PO DAILY 08/17/24 09/01/24 08/25/24 History omeprazole 20 mg capsule,delayed 20 mg PO Q OTHER DAY 08/17/24 09/01/24 Unknown History release Exam Height,Weight and Vital Signs: Height 5 ft 8.11 in Weight 97.522 kg Assessment and Plan Assessment Anesthesia Assessment: Chart Reviewed Final Anesthetic Review Family History of Problems with Anesthesia: No History of Problems with Anesthesia: No Documented by User: Phyllis Diaz MD 09/01/24 08:10 PMFSH Past Medical History Medical History GERD (gastroesophageal reflux disease) Varicose vein of leg Osteoarthritis HLD (hyperlipidemia) Hypertension Surgical History Surgical History H/O left knee surgery (09/2021) Hx of tonsillectomy History of mandibular surgery (~1980) Hx of colonoscopy Social History Social History Housing: House Are you a primary behavioral health care coordinator to a significant other at home: No Do you presently have visiting nurse or other home services: No Patient Tobacco Use Status: Former Tobacco user Tobacco use type: Cigarette Use of substances other than those prescribed or required for medical reasons: No Have you been hit, kicked, punched, or otherwise hurt by someone within the past year? If so, by whom?: No Are you DNR?: No Advance Directives: No Advance Directives Information Provided: Yes Advance Directives on File: No Nutrition Risks: No Nutritional Risk Poor oral hygiene: No Current occupational status: employed Current occupation: [email or web address] Meds Allergies Allergy/AdvReac Type Severity Reaction Status Date / Time ibuprofen [From Motrin] AdvReac Stomach Verified 08/26/24 09:26 Upset Home Medications ?Medication ?Instructions ?Recorded ?Confirmed ?Last Taken ?Type lisinopril 20 2 tab PO DAILY 10/24/21 09/01/24 09/01/24 04:30 History mg-hydrochlorothiazide 12.5 mg tablet [place] 3 Fish Oil 08/17/24 08/17/24 08/25/24 History acetaminophen 500 mg capsule 2,000 mg PO BID PRN Pain 08/17/24 09/01/24 09/01/24 04:30 History cetirizine 10 mg tablet (Zyrtec) 10 mg PO DAILY PRN Allergy Symptoms 08/17/24 09/01/24 09/01/24 04:30 History cholecalciferol (vitamin D3) 25 25 mcg PO DAILY 08/17/24 09/01/24 Unknown History mcg (1,000 unit) tablet (Vitamin D3) flaxseed oil 1,000 mg capsule 1,000 mg PO DAILY 08/17/24 09/01/24 08/25/24 History omeprazole 20 mg capsule,delayed 20 mg PO Q OTHER DAY 08/17/24 09/01/24 Unknown History release Exam Airway Mallampati Class: III (multiple broken teeth , front and back, top and bottom, very poor dentition, pt made aware of risks and accepts) TM Dist: >3cm Neck ROM: Full Heart: rrr Lungs: cta Assessment and Plan Assessment Anesthesia Assessment: Anesthesia Plan Discussed Final Anesthetic Review NPO: Yes ASA Class: III Final Preanesthetic Review: No Changes in Pt Med Stat, Meds/Allgs Chart Reviewed, Consent Obtained/Reviewed and Anes Risks/Benef Reviewed Patient Risk: Intermediate Procedure Risk: Intermediate Anesthetic Plan Anesthetic Plan: GA, Regional Block and Agree w/ Assess. and Plan Disposition: Standard PACU
[2024-09-01 06:13] VITALS: BMI 32.6
[2024-09-01 06:24] VITALS: BP 161/85; PULSE 62; RESP 16; TEMP 36.6; O2SAT 98
[2024-09-01] MEDS: Lactated Ringers 1,000 ML 100 ML IVCONT (06:35)
--- NOTE | 2024-09-01 07:25 | MHC.SHP ---
Pre-Procedural Eval Section A - 24 Hr Update-Section A only Date of Service: 09/01/24 The patient is an INPATIENT: No Changes since office visit: No Cold of Flu in the past 2 weeks, No New Medical Problems, No Changes in Medication and No Patient answered all questions The patient has been examined within 24 hours of the surgical procedure. The History & Physical has been completed within 30 days and I have reviewed it.: Yes Section B - Complete if H&P > 30 days Chief Complaint: Unspecified rotator cuff tear or rupture of right Allergies: Allergies Allergy/AdvReac Type Severity Reaction Status Date / Time ibuprofen [From Motrin] AdvReac Stomach Verified 08/26/24 09:26 Upset Plan I have reviewed the history and physical and performed a pertinent physical examination on my patient. No changes have occurred unless specified. Time Spent With Patient Time: Total time managing care of this patient today ____ minutes.
[2024-09-01] MEDS: ceFAZolin Sodium/Dextrose,Iso 2 GM/50 ML PIGGYBACK IV (07:55)
--- NOTE | 2024-09-01 09:15 | PM.OP ---
Brief Operative Note Date of Service: 09/01/24 Pre-op diagnosis: Left Rotator cuff tear Post-op diagnosis: same Procedure: Left RTC repair and SAD Implants: Alvarenga and nephew double loaded 4.75 Helacoil, 5.5 Knotless lateral anchor, Regeneten large bioinductive implant Surgeon: Mark Juarez MD Anesthesia: GETA and regional Was an Clerical Specialist used for this Procedure?: Yes Clerical Specialist: Mamta Cummings Estimated blood loss (mL): 20 IV fluids (mL): 1,000 Pathology: none sent Condition: stable Disposition: PACU
[2024-09-01 09:22] VITALS: BP 121/72; PULSE 84; RESP 17; TEMP 36.6; O2SAT 98
[2024-09-01 09:27] VITALS: BP 124/76; PULSE 87; RESP 20; O2SAT 96
[2024-09-01 09:32] VITALS: BP 126/71; PULSE 84; RESP 20; O2SAT 95
[2024-09-01 09:37] VITALS: BP 136/73; PULSE 86; RESP 20; O2SAT 95
[2024-09-01 09:52] VITALS: BP 122/66; PULSE 85; RESP 20; TEMP 36.3; O2SAT 96
--- NOTE | 2024-09-01 10:16 | W.PM.OPN ---
Operative Note Operative Note Date of Service: 09/01/24 Narrative: Date of Service: 09/01/24 Pre-op diagnosis: Left Rotator cuff tear Post-op diagnosis: same Procedure: Left RTC repair and SAD Implants: Alvarenga and nephew double loaded 4.75 Helacoil, 5.5 Knotless lateral anchor, Regeneten large bioinductive implant Surgeon: Mark Juarez MD Anesthesia: GETA and regional Was an Director Of Accounts Receivable used for this Procedure?: Yes Director Of Accounts Receivable: Mamta Cummings Estimated blood loss (mL): 20 IV fluids (mL): 1,000 Pathology: none sent Condition: stable Disposition: PACU Procedure in detail: Patient was brought to the operating room and placed the the beach chair position. All bony prominences were well padded and the limb was prepped and draped in standard sterile fashion. A time out was called to identify proper site, proper procedure and proper surgeon. IV antibiotics per weight were administered. I began by making a posterolateral stab incision with a 15 blade. A blunt trochar was placed into the glenohumeral joint and I insufflated the joint with saline and a 30 degree arthroscope was placed. I established an outside- in anterior portal just distal to the biceps tendon. I then began my inspection of the glenohumeral joint. There were scatter G1/2 changes of the anterior glenoid and the HH looked normal. There was a small degenerative SLAP tear at the biceps anchor and superior and anteriorly along the labrum. These were debrided with a cautery want. There was a full thickness undersurface RTC tear of the supraspinatus. The subcapularis was intact. I debrided the loose cartilage of the glenoid and the degenerative labral tearing. I then removed the trochar and entered the subacromial space. A direct lateral portal was then established and I performed a bursectomy. The cuff was then examined. There was a full thickness tear of the supraspinatus withretraction. There was an irregular intra substance componenet as well. I used a grasper to assess the supraspinatus but this was NOT mobile. The infraspinatus was mobile and normal. I placed one medial row double loaded anchor after using a tap just adjacent to the articular cartilage and then brought the suture limbs ( 4) through the anterior fibers of the infra and some of the remaining posterior supraspiantus fibers.. I then debrided the bare area (just posterior to the biceps, down to bleeding bone and, using a cross bridge configuration, brought 4 limbs toone 5.5 lateral anchor. This re-approximated a portion of the supraspinatus and compressed the leading edge of the infra. I then established a second posterolateral portal and palced a large Regeneten suture through the anterolateral portal. PEEK chelo and a bone staple was used to place the patch over the deficient supraspinatus. I then performed a 5mm sub acromial decompression with a suri. Once I was satisfied with the repair final images were captured and I removed all instrumentation. Portals were closed with nylon. Patient was placed in an abduction sling, extubated and brought to the recovery room in stable condition. There were no known complications.
== END 2024-09-01 10:21 | disposition home or self-care (01) ==
LOC: HO.SSS 05:40
PROVIDERS: PCP Family Medicine; Visit Provider Orthopaedic Surgery
PROC: (CPT 29827; principal; 2024-09-01 07:30)
DX: S46.012A Strain of muscle(s) and tendon(s) of the rotator cuff of left shoulder, initial encounter (principal); M25.512 Pain in left shoulder; M25.612 Stiffness of left shoulder, not elsewhere classified; M19.012 Primary osteoarthritis, left shoulder; W19.XXXA Unspecified fall, initial encounter; Y93.9 Activity, unspecified; Y92.63 Factory as the place of occurrence of the external cause; Y99.0 Civilian activity done for income or pay; I10 Essential (primary) hypertension; E78.5 Hyperlipidemia, unspecified; K21.9 Gastro-esophageal reflux disease without esophagitis; Z88.6 Allergy status to analgesic agent; Z87.891 Personal history of nicotine dependence; Z98.890 Other specified postprocedural states; Z79.899 Other long term (current) drug therapy
CPT/HCPCS: 29827; 29826; C1713; C1763; J0171; J0665; J0690; J1100; J2003; J2250; J2371; J2405; J2704

== ENCOUNTER → 2024-09-01 05:40 | Outpatient (BNV) | payer OTHER, SELFPAY | PROVIDERS: PCP Family Medicine; Visit Provider Orthopaedic Surgery | DX: S46.012A Strain of muscle(s) and tendon(s) of the rotator cuff of left shoulder, initial encounter (principal); S43.432A Superior glenoid labrum lesion of left shoulder, initial encounter | CPT/HCPCS: 29823; 29827 ==

== ENCOUNTER 2024-09-07 09:33 | Outpatient (AMB) | payer OTHER, SELFPAY ==
--- NOTE | 2024-09-07 09:35 | MHC.OFFVIS ---
Vital Signs 09/07/24 10:06 Height 5 ft 8 in Weight 217 lb BMI 33.0 Handedness Right Intake Visit Reasons: PO - Left RTC repair and SAD 09/01/24 NE Intake Note: Vega is a 69 year old right hand dominant male who presents today for a post op appointment s/p Left RTC repair and SAD 09/01/24 NE. Patient reports he is not feeling so good. He states that having a sore throat and a runny nose, he thinks that it could be from coming from anesthesia. He expresses concerns of a suture. Allergies ibuprofen [From Motrin] Adverse Reaction (Verified 09/07/24 09:47) Stomach Upset HPI HPI PO - Left RTC repair and SAD 09/01/24 NE: Details: Mr. Quarles is a 69-year-old male who presents the office today status post left shoulder rotator cuff repair and subacromial decompression that was performed on 09/01/[address] Juarez. Overall he is doing very well. He has presented to the office today in the abduction sling as appropriate. He does report having a sore throat and a productive cough after surgery. He has not tested for floor COVID. He denies any fever or chills. No additional complaints. [facility] Medical History GERD (gastroesophageal reflux disease) Varicose vein of leg Osteoarthritis HLD (hyperlipidemia) Hypertension Surgical History H/O left knee surgery (09/2021) Hx of tonsillectomy History of mandibular surgery (~1980) Hx of colonoscopy Social History Housing: House Are you a primary cna caregiver to a significant other at home: No Do you presently have visiting nurse or other home services: No Patient Tobacco Use Status: Former Tobacco user Tobacco use type: Cigarette Current occupational status: employed Current occupation: [employer] Review of Systems Const All systems reviewed & are unremarkable except as noted in HPI and below Physical Exam Vital Signs: BMI result Body Mass Index 33.0 Const General: cooperative, healthy appearing and no acute distress Resp Effort & Inspection: normal respiratory effort and able to speak in complete sentences Cardio Rate: regular rate Peripheral pulses: Peripheral pulses 2+ throughout Skin Lesions: no lesions Rashes: no rashes Extrem Other: Left shoulder: Sutures are clean dry and intact. No surrounding erythema or drainage. No signs of infection. 45 degrees of forward flexion and abduction. External rotation to neutral. NVI. Assessment & Plan Assessment & Plan (1) Status post left rotator cuff repair: Code(s): Z98.890 - Other specified postprocedural states Category: Surgical Plan Mr. Quarles is a 69-year-old male who presents the office today status post left shoulder rotator cuff repair and subacromial decompression that was performed on 09/01/[address] Juarez. Overall he is doing very well. He has presented to the office today in the abduction sling as appropriate. He does report having a sore throat and a productive cough after surgery. He has not tested for flu or COVID. He denies any fever or chills. No additional complaints. While in the office today sutures removed and Steri-Strips were applied. He was placed back into the abduction sling. He should remain in the sling for 6 weeks. I instructed the patient that he is unable to drive all in the sling. He reports that he did not take any of his pain medications and plans to bring them into the office for disposal at a future appointment. 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 Patient understands and accepts. In regards to his upper respiratory symptoms I encouraged to test for COVID or flu. Additionally, the patient has been referred to physical therapy to begin stat. An order has been placed while the office today. He will follow-up in [address] Juarez, sooner if needed Orders: Orders PT Evaluation and Treatment Today Z98.890 - Other specified postprocedural states Coding Level of Care Code Global (39355) Diagnoses Status post left rotator cuff repair Z98.890
[2024-09-07 10:06] VITALS: BMI 33.0
== END 2024-09-07 10:06 | disposition home or self-care (01) ==
LOC: HO.HOS 09:33
PROVIDERS: PCP Family Medicine; Visit Provider Physician Assistant
DX: Z98.890 Other specified postprocedural states (principal)
CPT/HCPCS: 99024

== ENCOUNTER → 2024-09-07 09:33 | Outpatient (BNVA) | payer OTHER, SELFPAY | PROVIDERS: PCP Family Medicine; Visit Provider Physician Assistant | DX: Z47.89 Encounter for other orthopedic aftercare (principal); Z98.890 Other specified postprocedural states | CPT/HCPCS: 99212 ==

== ENCOUNTER 2024-10-07 08:47 | Outpatient (AMB) | payer OTHER, SELFPAY ==
--- NOTE | 2024-10-07 08:48 | MHC.OFFVIS ---
Intake Visit Reasons: PO - Left RTC repair and SAD 09/01/24 NE Intake Note: Vega is a 69 year old right hand dominant male who presents today for a post op appointment s/p Left RTC repair and SAD 09/01/24 NE. Patient reports that he is dong well, he continues to have some soreness of which he expected. He has not started physical therapy but is willing to attend. He has been owrking on some ROM at home but is unsure how far to push himself. Allergies ibuprofen [From Motrin] Adverse Reaction (Verified 10/07/24 09:05) Stomach Upset HPI HPI PO - Left RTC repair and SAD 09/01/24 NE: Details: Vega is a 69 year old right hand dominant male who presents today for a post op appointment s/p Left RTC repair and SAD 09/01/24 NE. Patient reports that he is dong well, he continues to have some soreness of which he expected. He has not started physical therapy but is willing to attend. He has been working on some ROM at home but is unsure how far to push himself. [facility] Medical History GERD (gastroesophageal reflux disease) Varicose vein of leg Osteoarthritis HLD (hyperlipidemia) Hypertension Surgical History H/O left knee surgery (09/2021) Hx of tonsillectomy History of mandibular surgery (~1980) Hx of colonoscopy Social History Housing: House Are you a primary menagerie caretaker to a significant other at home: No Do you presently have visiting nurse or other home services: No Patient Tobacco Use Status: Former Tobacco user Tobacco use type: Cigarette Current occupational status: employed Current occupation: [email or web address] Physical Exam Extrem Other: Portals clean dry and intact / passively Assessment & Plan Assessment & Plan (1) Status post left rotator cuff repair: Code(s): Z98.890 - Other specified postprocedural states Category: Surgical Plan: Status post rotator cuff repair. Doing well. PT and follow up in 6 weeks. May discontinue sling. Coding Level of Care Code Global (28881) Diagnoses Status post left rotator cuff repair Z98.890
== END 2024-10-07 09:13 | disposition home or self-care (01) ==
LOC: HO.HOS 08:47
PROVIDERS: PCP Family Medicine; Visit Provider Orthopaedic Surgery
DX: Z98.890 Other specified postprocedural states (principal)
CPT/HCPCS: 99024

== ENCOUNTER → 2024-10-07 08:47 | Outpatient (BNVA) | payer OTHER, SELFPAY | PROVIDERS: PCP Family Medicine; Visit Provider Orthopaedic Surgery | DX: Z47.89 Encounter for other orthopedic aftercare (principal) | CPT/HCPCS: 99212 ==

== ENCOUNTER 2024-11-16 09:46 | Outpatient (AMB) | payer OTHER, SELFPAY ==
--- NOTE | 2024-11-16 09:52 | MHC.OFFVIS ---
Intake Visit Reasons: PO - Left RTC repair and SAD 09/01/24 NE Intake Note: Vega is a 69 year old right hand dominant male who presents today for a post op appointment s/p Left RTC repair and SAD 09/01/24 NE. At his last appointment with he was informed to continue physical therapy and discontinue his sling. Patient reports he is feeling better. Allergies ibuprofen [From Motrin] Adverse Reaction (Verified 10/07/24 09:05) Stomach Upset HPI HPI PO - Left RTC repair and SAD 09/01/24 NE: Details: Mr. Quarles is a 69-year-old male who presents to the office today for routine follow-up status post left shoulder rotator cuff repair performed on 09/01/[address] Juarez. Patient continues to work with physical therapy and is doing quite well. He has been progressing gently to some strengthening with 5 lb weights under the guidance of physical therapy. He is no longer wearing the sling as instructed. He reports only mild discomfort occasionally. Overall he is doing very well and is happy with his recovery. [facility] Medical History GERD (gastroesophageal reflux disease) Varicose vein of leg Osteoarthritis HLD (hyperlipidemia) Hypertension Surgical History H/O left knee surgery (09/2021) Hx of tonsillectomy History of mandibular surgery (~1980) Hx of colonoscopy Social History Housing: House Are you a primary critical care specialist to a significant other at home: No Do you presently have visiting nurse or other home services: No Patient Tobacco Use Status: Former Tobacco user Tobacco use type: Cigarette Current occupational status: employed Current occupation: [employer] Review of Systems Const All systems reviewed & are unremarkable except as noted in HPI and below Physical Exam Extrem Other: Left shoulder lacking roughly 10 degrees of forward flexion and abduction. Full external rotation. Prior incision sites are well approximated and healed with no signs of infection. NVI. Assessment & Plan Assessment & Plan (1) Status post left rotator cuff repair: Code(s): Z98.890 - Other specified postprocedural states Category: Surgical Plan Mr. Quarles is a 69-year-old male who presents to the office today for routine follow-up status post left shoulder rotator cuff repair performed on 09/01/[address] Juarez. Patient continues to work with physical therapy and is doing quite well. He has been progressing gently to some strengthening with 5 lb weights under the guidance of physical therapy. He is no longer wearing the sling as instructed. He reports only mild discomfort occasionally. Overall he is doing very well and is happy with his recovery. While in the office today, we discussed continuation of physical therapy. It is still a concern that he could overdue activities and caused an increase in pain. Therefore, I have cautioned him on progressing too soon to quickly. I also cautioned him on weightlifting. He will follow up in 6 weeks, sooner if needed. Coding Level of Care Code Global (72235) Diagnoses Status post left rotator cuff repair Z98.890
== END 2024-11-16 10:05 | disposition home or self-care (01) ==
LOC: HO.HOS 09:47
PROVIDERS: PCP Family Medicine; Visit Provider Physician Assistant
DX: Z98.890 Other specified postprocedural states (principal)
CPT/HCPCS: 99024

== ENCOUNTER → 2024-11-16 09:46 | Outpatient (BNVA) | payer OTHER, SELFPAY | PROVIDERS: PCP Family Medicine; Visit Provider Physician Assistant | DX: M25.512 Pain in left shoulder (principal); Z98.890 Other specified postprocedural states | CPT/HCPCS: 99212 ==

== ENCOUNTER 2024-11-19 08:00 | Outpatient (RCR) | payer OTHER, SELFPAY ==
[2024-10-14 07:55] VITALS: BP 142/78; PULSE 66
--- NOTE | 2024-10-14 08:50 | MHC.PT.EP ---
[facility] [place] Office [place] Office [place] Office [address] Juaquin Marques [address] [phone] F: [phone] F: [phone] F: [phone] F: [phone] Physical Therapy Plan of Care Date of Evaluation: 10/14/24 Date of Surgery: 09/01/24 Diagnosis: S/P L rotator cuff repair Assessment: Vega is a 69 year old male who is referred to PT for s/p L rotator cuff repair . He is 6 weeks post op. Per operative report he had a supraspinatus repair, infraspinatus and subscap intact and SAD. On PT examination he presented with no TTP, 5/10 pain at rest and 7/10 pain with movement and L SL, decreased L shoulder ROM, decreased L shoulder and scap strength and altered posture. He lives with family and is independent with all ADLS but takes compensates with R UE. 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 He would benefit from skilled PT to address the aforementioned impairments and improve tolerance to functional activities. Frequency and Duration: The patient will be seen 2/week for 8 weeks Short Term Goals: 1. Pt will deny having pain at rest in 2 weeks 2. Pt will demonstrate full shoulder ROM which will enable him to use his L UE for dressing in 4 weeks Manager Product Support Goals: 1. Pt will demonstrate an increase in muscle strength by 1 grade which will enable him to use L UE for ADLS in 6 weeks 2. Pt will be independent with all HEP and return to PLOF in 8 weeks Treatment Plan: Modalities to reduce pain, spasms and effusion. Manual therapy to restore motion and function. Therapeutic exercise to improve strength and flexibility. Neuromuscular re-education for posture and balance. Therapeutic activities to return to functional activities of daily living. Electronically signed by: Kita Santos PT DPT Please sign and return to therapist. Thank you for your referral.
--- NOTE | 2024-12-21 13:21 | MHC.PT.DC ---
[facility] [place] Office [place] Office [place] Office [address] Juaquin Marques [address] [phone] F: [phone] F: [phone] F: [phone] F: [phone] Physical Therapy Discharge Report Diagnosis: S/P L rotator cuff repair Date of Surgery: 09/01/24 Date of Evaluation: 10/14/24 Date of Discharge: 12/21/24 Treatments to Date: 11 Cancellations to Date: 2 No Shows to Date: 0 Discharge Status: Achieved Goals Improved Function Independent with HEP Discharge Summary: Vega attended 11 PT visits and made significant improvements with PT. He has achieved all goals set for his and is independent with al HEP. He is therefore being d/c from PT. Electronically signed by: Kita Santos PT DPT Please sign and return to therapist. Thank you for your referral.
== END 2024-12-21 13:21 | disposition home or self-care (01) ==
LOC: HO.PT 08:00
PROVIDERS: PCP Family Medicine; Visit Provider Physician Assistant
DX: Z47.89 Encounter for other orthopedic aftercare (principal)
CPT/HCPCS: 97110; 97161; 97530

== ENCOUNTER 2024-12-28 11:36 | Outpatient (AMB) | payer OTHER, SELFPAY ==
--- NOTE | 2024-12-28 11:39 | MHC.OFFVIS ---
Intake Visit Reasons: OV-Left RTC repair and SAD 09/01/24 NE Intake Note: Vega is a 69 year old right hand dominant male who presents today for a post op appointment s/p Left RTC repair and SAD 09/01/24 NE. At his last appointment he was advised to continue physical therapy. Patient states he is doing okay, having some tightness in his shoulder. He notices that he is unable to do much at the moment since his right hand is giving him trouble. Allergies ibuprofen (From Motrin) Adverse Reaction (Verified 12/28/24 12:08) Stomach Upset HPI HPI OV-Left RTC repair and SAD 09/01/24 NE: Details: Mr. Quarles is a 69-year-old male who presents to the office today status post left shoulder rotator cuff repair with patch and subacromial decompression performed on 09/01/[address] Juarez. Overall the patient states that he is doing very well. He has regained full range of motion of the left upper extremity. He was recently discharged from physical therapy on 12/21/2024 after achieving all goals. [facility] Medical History GERD (gastroesophageal reflux disease) Varicose vein of leg Osteoarthritis HLD (hyperlipidemia) Hypertension Surgical History H/O left knee surgery (09/2021) Hx of tonsillectomy History of mandibular surgery (~1980) Hx of colonoscopy Social History Housing: House Are you a primary care manager to a significant other at home: No Do you presently have visiting nurse or other home services: No Patient Tobacco Use Status: Former Tobacco user Tobacco use type: Cigarette Current occupational status: employed Current occupation: [employer] Review of Systems Const All systems reviewed & are unremarkable except as noted in HPI and below Physical Exam Extrem Other: Left shoulder full range of motion with forward flexion, abduction, adduction and external rotation. Prior incision sites are well approximated and healed with no signs of infection. NVI. Assessment & Plan Assessment & Plan (1) Status post left rotator cuff repair: Code(s): Z98.890 - Other specified postprocedural states Category: Surgical Plan Mr. Quarles is a 69-year-old male who presents to the office today status post left shoulder rotator cuff repair with patch and subacromial decompression performed on 09/01/[address] Juarez. Overall the patient states that he is doing very well. He has regained full range of motion of the left upper extremity. He was recently discharged from physical therapy on 12/21/2024 after achieving all goals. While in the office today, the patient has been discharged due to regaining strength and range of motion in the left shoulder. The patient may resume back to normal activities as tolerated. He will follow up PRN, sooner if needed. Coding Level of Care Code Est Pt Level 3 (47833) Diagnoses Status post left rotator cuff repair Z98.890
--- OUTSIDE RECORDS SUMMARY | 2024-12-28 12:45 | XMS_ITS | Encounter Summary ---
Author Organization [facility] Address [address] [place] [phone] Phone Care Team Providers Care Factory Assembler Name Role Phone Kaushik Alvarenga Primary Care Provider Qasim Shaver MD Primary Care Provide r Encounter Details Date Type Department Care Team (Latest Contact Info) Description 05/19/2017 Transcribe [facility] [address] [place] [address] [address] Floor, [address] [place] [address] Biju Irene MD [address] [facility], [address] [address] [email or web address] Chest pain, unspecified type (Primary Dx) Social History Tobacco Use Types Packs/Day Years Used Date Smoking Tobacco: Former Smokeless Tobacco: Never Alcohol Use Standard Drinks/Week Comments Yes 1 (1 standard drink = 0.6 oz pur e alcohol) per week Comments Unknown Sex and Gender Information Value Date Recorded Sex Assigned at Choose not to disclose 12/2017 9:38 AM EST Legal Sex Male 9:52 PM EDT Gender Identity Choose not to disclose 8 9:38 AM EST Sexual Orientation Choose not to disclose 2017 9:38 AM EST documented as of this encounter Plan of Treatment Not on file documented as of this encounter Results * Stress Test Exercise (05/23/2017 9:34 AM EST) Anatomical Region Laterality Modality Heart Ultrasound Narrative 05/23/2017 12:16 PM EST Stress Test Result Patient exercised for 7:03 minutes on a Max protocol achieving 10.10 METs. Test terminated due to fatigue. Maximum heart rate achieved was 137 bpm which represents 85% of the MPHR. 1. No ischemic EKG changes. 2. No chest pain. 3. Normal blood pressure response exercise. Normal functional capacity for age. 4. No ectopy. Conclusion - normal stress test. Esther Mcarthur ORNAMENTAL METAL WORKER us Biju Irene MD CV STRESS ORDERABLES Final Result documented in this encounter Visit Diagnoses Diagnosis Chest pain, unspecified type- Primary Chest pain, unspecified type documented in this encounter Care Teams Factory Assembler Relationship Specialty Start Date End Date Kaushik Alvarenga DO [address] [place] [id number] PCP - General Family Medicine 05/18/17 04/29/21 Qasim Shaver MD [address] [address] PCP - General Family Medicine 04/30/21 documented as of this encounter Additional Source Comments The information contained in this document represents components of the legal health record. It is not the complete legal health record.[facility]
== END 2024-12-28 12:16 | disposition home or self-care (01) ==
LOC: HO.HOS 11:37
PROVIDERS: PCP Family Medicine; Visit Provider Physician Assistant
DX: Z98.890 Other specified postprocedural states (principal)

== ENCOUNTER → 2024-12-28 11:36 | Outpatient (BNVA) | payer OTHER, SELFPAY | PROVIDERS: PCP Family Medicine; Visit Provider Physician Assistant | DX: M65.4 Radial styloid tenosynovitis [de Quervain] (principal) | CPT/HCPCS: 20550; 99212; J1100; J2003 ==

== ENCOUNTER 2024-12-28 12:06 | Outpatient (AMB) | payer OTHER, SELFPAY ==
--- NOTE | 2024-12-28 12:07 | MHC.OFFVIS ---
Intake Visit Reasons: INJ-Dequervains inj Intake Note: Vega is a 69 year old male who presents today for a right hand De Quervain's injection. Patient reports pain at the base of his right thumb with movement. Expresses he is having trouble with daily activities due to his pain. Allergies ibuprofen (From Motrin) Adverse Reaction (Verified 12/28/24 12:08) Stomach Upset HPI HPI INJ-Dequervains inj: Details: Vega is a 69 year old male who presents today for a right hand De Quervain's injection. Patient reports pain at the base of his right thumb with movement. Expresses he is having trouble with daily activities due to his pain. Pain is primarily radiating into the forearm from the base of the right thumb at the radial styloid [facility] Medical History GERD (gastroesophageal reflux disease) Varicose vein of leg Osteoarthritis HLD (hyperlipidemia) Hypertension Surgical History H/O left knee surgery (09/2021) Hx of tonsillectomy History of mandibular surgery (~1980) Hx of colonoscopy Social History Housing: House Are you a primary hemodialysis patient care specialist to a significant other at home: No Do you presently have visiting nurse or other home services: No Patient Tobacco Use Status: Former Tobacco user Tobacco use type: Cigarette Current occupational status: employed Current occupation: [employer] Review of Systems Const All systems reviewed & are unremarkable except as noted in HPI and below Physical Exam Extrem Other: Patient is alert, oriented, and in no acute distress. Neuro: Normal sensation of the tips of all digits of the right hand at this time Vascular: Cap refill brisk Pain: Tenderness to palpation of right radial styloid noted Positive Jt on the right ROM: Patient is able to make a closed fist and extend all digits of the right hand fully Skin: No lacerations or abrasions. General: No ecchymosis, erythema, or evidence of infection. Psych: Appears grossly normal Affect normal Attitude cooperative Office Procedures AMB Tendon Injection Tendon Injection [id number] Tendon Sheath Injection All charges added?: Procedure code (CPT) selection complete Assessment & Plan Assessment & Plan (1) De Quervain's tenosynovitis, right: Code(s): M65.4 - Radial styloid tenosynovitis [de Quervain] Category: Medical Plan 1. De Quervain tenosynovitis, right Patient is educated about this condition Patient is educated about the treatment options available Patient would like to proceed with steroid injection at this time Injection #1: The risks and benefits of a steroid injection including but not limited to risk of damage to blood vessels, nerves, tendons, infection, skin bleaching, failure to improve symptoms, increased pain, and possible need for further injections or other intervention were discussed with the patient and the patient wishes to proceed with the steroid injection. Once consent was obtained, I sterilely prepped the area over the 1st dorsal compartment of the right thumb. I then injected the 1st dorsal compartment with a combination of 1 mL of dexamethasone (4mg/ml), and 1% lidocaine. The patient tolerated the procedure well with no complications and good resolution of their symptoms prior to leaving clinic. If the patient continues to have pain 6-8 weeks following this injection, they may call to schedule appointment to discuss alternative treatment options Coding Level of Care Code Est Pt Level 3 (05202) Diagnoses De Quervain's tenosynovitis, right M65.4 CPT Codes Tendon Injection - Tendon Injection 1: [id number] Tendon Sheath Injection ([id number])
== END 2024-12-28 12:08 | disposition home or self-care (01) ==
LOC: HO.HOS 12:06
PROVIDERS: PCP Family Medicine
DX: M65.4 Radial styloid tenosynovitis [de Quervain] (principal)
CPT/HCPCS: 20550; 99213

== ENCOUNTER 2025-02-04 12:56 | Outpatient (AMB) | payer OTHER, SELFPAY ==
--- OUTSIDE RECORDS SUMMARY | 2025-02-04 13:09 | XMS_ITS | Clinical Summary ---
Author Organization [facility] Address [address] [facility] [address] [place] [address] Phone Care Team Providers Care Case Fitter Name Role Phone Qasim Shaver MD Primary Care Provide r Allergies Active Allergy Reactions Criticality Noted Date Comments Hydrocodone-Acetaminophen GI Upset 05/18/2017 Medications LISINOPRIL ORAL Take 25 mg by mouth daily. Active CETIRIZINE HCL (ZYRTEC ORAL) Active SIMVASTATIN ORAL Act kemi aspirin 81 MG EC tablet Take 1 tablet (81 mg total) by mouth daily. 30 tablet 05/20/2017 Active Active Problems Problem Noted Date Diagnosed Date Chest pain 05/18/2017 Assessment & Plan (05/19/2017 8:52 AM EST): His chest pain sounds like costochondritis. It is reproducible chest wall pain. He had a prolonged episode yesterday and negative cardiac enzymes and a normal EKG. I reassured him that this is not his heart. Because of his strong family history of heart disease we will set up an outpatient treadmill stress test just appears sure himself further. Although I don't think this is heart, sometimes sublingual nitroglycerin can relax smooth muscle and can help costochondritis. I told him he can try this at home to see if it helps. Assessment & Plan (05/18/2017 8:14 PM EST): He will be monitored on telemetry. Serial troponins have been ordered. Initial EKG does not show any acute ST or T-wave changes. As he is complaining of ongoing chest discomfort and other EP EKG will be obtained now. A stress test and cardiology consultation has been requested for the morning. Hypertension 05/18/2017 Assessment & Plan (05/19/2017 8:52 AM EST): His blood pressures well controlled on the lisinopril. Assessment & Plan (05/18/2017 8:15 PM EST): He reports taking 2 tablets of 20 mg lisinopril daily; this regimen will be continued. Hyperlipidemia 05/18/2017 Assessment & Plan (05/19/2017 8:52 AM EST): Continue simvastatin. Assessment & Plan (05/18/2017 8:15 PM EST): He reportedly takes simvastatin but was unable to recall his dose. 40 mg dose has been ordered for now. Family History Medical History Relation Comments Coronary artery disease Father Dementia Mother Relation Status Comments Father Mother Alive Social History Tobacco Use Types Packs/Day Years Used Date Smoking Tobacco: Former Smokeless Tobacco: Never Alcohol Use Standard Drinks/Week Comments Yes 1 (1 standard drink = 0.6 oz pur e alcohol) per week Education Answer Date Recorded Are you interested in more education? Not on salomón e 09/27/2022 Are you concerned about learning? Not on file 09/27/2022 No 09/27/2022 No 09/27/2022 Digital Access Answer Date Recorded No 10/28/2022 No 10/28/2022 No 10/28/2022 Reliable internet access at home? Not on file 10/28/2022 Device with a working camera? Not on file Comments Unknown Sex and Gender Information Value Date Recorded Sex Assigned at Choose not to disclose 12/2017 9:38 AM EST Legal Sex Male 9:52 PM EDT Gender Identity Choose not to disclose 8 9:38 AM EST Sexual Orientation Choose not to disclose 2017 9:38 AM EST Last Filed Vital Signs Vital Sign Reading Time Taken Comments Blood Pressure 169/99 04/30/2021 5:34 PM EST Pulse 72 04/30/2021 5:34 PM EST Temperature 36.2 C (97.2 F) 04/30/2021 5:34 PM EST Respiratory Rate 18 04/30/2021 5:34 PM EST Oxygen Saturation 97% 04/30/2021 5:34 PM EST Inhaled Oxygen Concentration - - Weight 95.3 kg (210 lb) 04/30/2021 12:53 PM EST Height 175.3 cm (5' 9 ) 04/30/2021 12:53 PM EST Body Mass Index 31.01 04/30/2021 12:53 PM EST Plan of Treatment Health Maintenance Due Date Last Done Comments BLOOD PRESSURE 1957 DEPRESSION SCREENING 1969 SMOKING Hx and SMOKELESS TOB ACCO SCREENING 1970 HEPATITIS C SCREENING 1975 COLOGUARD 2002 COLONOSCOPY 2002 COLORECTAL CANCER SCREENING 2002 FIT TEST 2002 FOBT 2002 SIGMOIDOSCOPY 2002 VIRTUAL COLONOSCOPY 2002 PNEUMOCOCCAL VACCINES (50+ y ears) (1 of 1 - PCV) 2007 ZOSTER VACCINES (1 of 2) 2007 CREATININE LEVEL 05/18/2018 05/18/2017 POTASSIUM LEVEL 05/18/2018 05/18/2017 LIPID PANEL 05/19/2022 05/19/2017 ABDOMINAL AORTIC ANEURYSM (A AA) SCREENING 2022 INFLUENZA VACCINE (#1) 2024 COVID-19 VACCINE (2 - 2024-2 6 season) 2025 10/04/2020 Adult Td,Tdap Booster 09/13/2030 09/13/2020 RSV VACCINE (1 - 1-dose 75+ series) 2032 HEPATITIS A VACCINES Aged Out No long er eligible based on patient's age to complete this topic HIB VACCINES Aged Out No longer eligi ble based on patient's age to complete this topic MENINGOCOCCAL VACCINES (ACWY) Aged Out No longer eligible based on patient's age to complete this topic MENINGOCOCCAL VACCINES (B) Aged Out N o longer eligible based on patient's age to complete this topic Medical Devices Not on file Procedures Procedure Name Priority Date/Time Associated Diagnosis Comments LIPID PANEL Routine 05/19/2017 4:39 AM EST BASIC METABOLIC PANEL STAT 05/18/2017 4:55 PM EST from Last 3 Months or Most Recently Relevant to Health Maintenance Results * (ABNORMAL) Lipid panel (05/19/2017 4:39 AM EST) HDL 34 mg/dL [facility] Comment: Interpretation: Risk Level Males Decreased >45 mg/dL Average 40-45 mg/dL Increased <40 mg/dL CHOLESTEROL 212 0 - 240 mg/dL [facility] TRIGLYCERIDES 186(H) 30 - 160 mg/dL [facility] LDL 141(H) 50 - 129 mg/dL [facility] Comment: LDL levels in terms of risk for coronary heart disease: <100 mg/dL: Optimal 100-129 mg/dL: Near or above optimal 130-159 mg/dL: Borderline high 160-189 mg/dL: High >190 mg/dL: Very High CARDIAC RISK RATIO 6.2(H) 3.4 - 5.0 [facility] Blood 05/19/2017 4:39 AM EST 05/19/2017 5:29 AM EST Dominic Khan MD LAB BLOOD ORDERABLES Final Re sult [facility] [address] [place] [address] * (ABNORMAL) Basic metabolic panel (05/18/2017 4:55 PM EST) SODIUM 135 133 - 146 mmol/L [facility] CHLORIDE 96 96 - 108 mmol/L [facility] POTASSIUM 5.3(H) 3.3 - 5.1 mmol/L [facility] CO2 27 21 - 35 mmol/L [facility] BUN 20(H) 6 - 19 mg/dL [facility] CREATININE 1.20 0.5 - 1.5 mg/dL [facility] GLUCOSE 121(H) 70 - 99 mg/dL [facility] CALCIUM 9.6 8.4 - 10.3 mg/dL [facility] EGFR >60 60 - 1000 mL/min/1.7 3m2 [facility] Comment:Abnormal if <60. If patient is -[place]orese, multiply the result by 1.21. ANION GAP 17 10 - 20 mmol/L [facility] Blood 05/18/2017 4:55 PM EST 05/18/2017 5:03 PM EST us Cleveland Ribera MD LAB BLOOD ORDERABLES Final Result [address] [address] from Last 3 Months or Most Recently Relevant to Health Maintenance Insurance PPO PPO PPO PPO PPO PPO PPO AIM INSURANCE Advance Directives For more information, please contact: [phone] (9AM - 5PM Maria Luz/[facility], Friday-Friday) * Full Code (Presumed) (Latest Code Status on File) Date Activated Date Inactivated Comments 05/18/2017 8:19 PM 05/19/2017 1:25 PM Care Teams Case Fitter Relationship Specialty Start Date End Date [facility] [address] [address] PCP - General Family Medicine 04/30/21 Additional Source Comments The information contained in this document represents components of the legal health record. It is not the complete legal health record.[facility]
--- OUTSIDE RECORDS SUMMARY | 2025-02-04 13:09 | XMS_ITS | Encounter Summary ---
Author Organization [facility] Address [address] [facility] [address] [place] [address] Phone Care Team Providers Care Pattern Chart Writer Name Role Phone Kaushik Alvarenga Primary Care Provider Qasim Shaver MD Primary Care Provide r Encounter Details Date Type Department Care Team (Latest Contact Info) Description 05/19/2017 Transcribe [facility] [address] [place] [address] 3rd Floor, [address] [place] [address] Biju Irene MD [address] [facility], [address] [address] [email or web address] Chest pain, unspecified type (Primary [...] Conclusion - normal stress test. Esther Mcarthur ASSISTANT EDITOR us Biju Irene MD CV STRESS ORDERABLES Final Result documented in this encounter Visit Diagnoses Diagnosis Chest pain, unspecified type- Primary Chest pain, unspecified type documented in this encounter Care Teams Pattern Chart Writer Relationship Specialty Start Date End Date Kaushik Alvarenga DO [address] [place] [id number] PCP - General Family Medicine 05/18/17 04/29/21 Qasim Shaver MD [address] [address] PCP - General Family Medicine 04/30/21 documented as of this encounter Additional Source Comments The information contained in this document represents components of the legal health record. It is not the complete legal health record.[facility]
--- NOTE | 2025-02-04 13:14 | A.OFFVIS_ITS ---
Vital Signs 02/04/25 13:29 Height 5 ft 9 in Weight 215 lb BMI 31.7 Handedness Right Intake Visit Reasons: OV: De Quervain's, right hand s/p inj on 12/28/24 Intake Note: Vega is a 69 year old right hand dominant male who presents today for a follow up visit for his De Quervain's tenosynovitis, right. Patient was injected in the right thumb on 12/28/24. He says he thought his pain was improving however he says is got worse. Reports an increase in unbearable pain. At night when he pulls up the blanket this causes extreme pain. His ROM is very restricted and limited. Feels an increase in swelling as well, says the tendon is popping out more. Patient interested on injection today. Allergies ibuprofen (From Motrin) Adverse Reaction (Verified 02/04/25 13:29) Stomach Upset HPI HPI OV: De Quervain's, right hand s/p inj on 12/28/24: Details: Vega is a 69 year old right hand dominant male who presents today for a follow up visit for his De Quervain's tenosynovitis, right. Patient was injected in the right thumb on 12/28/24. He says he thought his pain was improving however he says is got worse. Reports an increase in unbearable pain. At night when he pulls up the blanket this causes extreme pain. His ROM is very restricted and limited. Feels an increase in swelling as well, says the tendon is popping out more. Patient interested on injection today. [facility] Medical History GERD (gastroesophageal reflux disease) Varicose vein of leg Osteoarthritis HLD (hyperlipidemia) Hypertension Surgical History H/O left knee surgery (09/2021) Hx of tonsillectomy History of mandibular surgery (~1980) Hx of colonoscopy Social History Housing: House Are you a primary continuum of care manager to a significant other at home: No Do you presently have visiting nurse or other home services: No Patient Tobacco Use Status: Former Tobacco user Tobacco use type: Cigarette Current occupational status: employed Current occupation: [employer] Review of Systems Const All systems reviewed & are unremarkable except as noted in HPI and below Physical Exam Vital Signs: BMI result Body Mass Index 31.7 Extrem Other: Patient is alert, oriented, and in no acute distress. Neuro: Normal sensation of the tips of all digits of the right hand at this time Vascular: Cap refill brisk Pain: Tenderness to palpation of right radial styloid noted Positive Jt on the right ROM: Patient is able to make a closed fist and extend all digits of the right hand fully Skin: No lacerations or abrasions. General: No ecchymosis, erythema, or evidence of infection. Psych: Appears grossly normal Affect normal Attitude cooperative Assessment & Plan Assessment & Plan (1) De Quervain's tenosynovitis, right: Code(s): M65.4 - Radial styloid tenosynovitis [de Quervain] Category: Medical Plan 1. Right de Quervain tenosynovitis Status post injection Date of injection 12/28/2024 Patient is educated about this condition Patient is educated about the typical treatment course At this time, patient is informed that we can do a repeat injection, however it is not possible to do today as it is not a minimum of 6 weeks out from last injection Patient is educated we can not do another injection so soon because of the risk of tendon rupture Patient understands this is amenable to this plan Follow-up in approximately 2 weeks for repeat injection for right de Quervain tenosynovitis, sooner with any acute concerns Coding Level of Care Code Est Pt Level 3 (77776) Diagnoses De Quervain's tenosynovitis, right M65.4
[2025-02-04 13:29] VITALS: BMI 31.7
== END 2025-02-04 13:53 | disposition home or self-care (01) ==
PROVIDERS: PCP Family Medicine
DX: M65.4 Radial styloid tenosynovitis [de Quervain] (principal)
CPT/HCPCS: 99213

== ENCOUNTER → 2025-02-04 12:56 | Outpatient (BNVA) | payer OTHER, SELFPAY | PROVIDERS: PCP Family Medicine | DX: M65.4 Radial styloid tenosynovitis [de Quervain] (principal); Z13.89 Encounter for screening for other disorder ==

== ENCOUNTER 2025-02-18 11:27 | Outpatient (AMB) | payer OTHER, SELFPAY ==
--- NOTE | 2025-02-18 11:52 | A.OFFVIS_ITS ---
Vital Signs 02/18/25 11:53 Height 5 ft 9 in Weight 214 lb BMI 31.6 Handedness Right Intake Visit Reasons: INJ-R de Quervain repeat inj per AA Intake Note: Vega is a 69 year old right hand dominant man who presents today for his De Quervain's tenosynovitis, right. Patient received an injection on 12/28/24 and says this offered no relief but he would like to try this injection once more before needing to discuss surgery. Allergies ibuprofen (From Motrin) Adverse Reaction (Verified 02/18/25 11:54) Stomach Upset HPI HPI INJ-R de Quervain repeat inj per AA: Details: Vega is a 69 year old right hand dominant man who presents today for his De Quervain's tenosynovitis, right. Patient received an injection on 12/28/24 and says this offered no relief but he would like to try this injection once more before needing to discuss surgery. COUNT INCLUDES [facility] Medical History GERD (gastroesophageal reflux disease) Varicose vein of leg Osteoarthritis HLD (hyperlipidemia) Hypertension Surgical History H/O left knee surgery (09/2021) Hx of tonsillectomy History of mandibular surgery (~1980) Hx of colonoscopy Social History Housing: House Are you a primary career professional to a significant other at home: No Do you presently have visiting nurse or other home services: No Patient Tobacco Use Status: Former Tobacco user Tobacco use type: Cigarette Current occupational status: employed Current occupation: [employer] Review of Systems Const All systems reviewed & are unremarkable except as noted in HPI and below Physical Exam Vital Signs: BMI result Body Mass Index 31.6 Office Procedures AMB Tendon Injection Tendon Injection [id number] Tendon Sheath Injection All charges added?: Procedure code (CPT) selection complete Assessment & Plan Assessment & Plan (1) De Quervain's tenosynovitis, right: Code(s): M65.4 - Radial styloid tenosynovitis [de Quervain] Category: Medical Plan 1. De Quervain tenosynovitis, right Patient is educated about this condition Patient is educated about the treatment options available Patient would like to proceed with steroid injection at this time Injection #1: The risks and benefits of a steroid injection including but not limited to risk of damage to blood vessels, nerves, tendons, infection, skin bleaching, failure to improve symptoms, increased pain, and possible need for further injections or other intervention were discussed with the patient and the patient wishes to proceed with the steroid injection. Once consent was obtained, I sterilely prepped the area over the 1st dorsal compartment of the right thumb. I then injected the 1st dorsal compartment with a combination of 1 mL of dexamethasone (4mg/ml), and 1% lidocaine. The patient tolerated the procedure well with no complications and good resolution of their symptoms prior to leaving clinic. If the patient continues to have pain 6-8 weeks following this injection, they may call to schedule appointment to discuss alternative treatment options Coding Level of Care Code Est Pt Level 3 (91885) Diagnoses De Quervain's tenosynovitis, right M65.4 CPT Codes Tendon Injection - Tendon Injection 1: [id number] Tendon Sheath Injection ([id number])
[2025-02-18 11:53] VITALS: BMI 31.6
--- OUTSIDE RECORDS SUMMARY | 2025-02-18 12:04 | XMS_ITS | Clinical Summary ---
Author Organization [facility] Address [address] [facility] [place] [address] [place] [address] Phone Care Team Providers Care Rotor Blade Installer Name Role Phone Qasim Shaver MD Primary [...] (05/19/2017 4:39 AM EST) HDL 34 mg/dL [facility] Comment: Interpretation: Risk Level Males Decreased >45 mg/dL Average 40-45 mg/dL Increased <40 mg/dL CHOLESTEROL 212 0 - 240 mg/dL [facility] TRIGLYCERIDES 186(H) 30 - 160 mg/dL [facility] LDL 141(H) 50 - 129 mg/dL [facility] Comment: LDL levels in terms of risk for coronary heart disease: <100 mg/dL: Optimal 100-129 mg/dL: Near or above optimal 130-159 mg/dL: Borderline high 160-189 mg/dL: High >190 mg/dL: Very High CARDIAC RISK RATIO 6.2(H) 3.4 - 5.0 [facility] Blood 05/19/2017 4:39 AM EST 05/19/2017 5:29 AM EST Dominic Khan MD LAB BLOOD ORDERABLES Final Re sult [facility] [address] [place] [address] * (ABNORMAL) Basic metabolic panel (05/18/2017 4:55 PM EST) SODIUM 135 133 - 146 mmol/L [facility] CHLORIDE 96 96 - 108 mmol/L [facility] POTASSIUM 5.3(H) 3.3 - 5.1 mmol/L [facility] CO2 27 21 - 35 mmol/L [facility] BUN 20(H) 6 - 19 mg/dL [facility] CREATININE 1.20 0.5 - 1.5 mg/dL [facility] GLUCOSE 121(H) 70 - 99 mg/dL [facility] CALCIUM 9.6 8.4 - 10.3 mg/dL [facility] EGFR >60 60 - 1000 mL/min/1.7 3m2 [facility] Comment:Abnormal if <60. If patient is -Swazi, multiply the result by 1.21. ANION GAP 17 10 - 20 mmol/L [facility] Blood 05/18/2017 4:55 PM EST 05/18/2017 5:03 PM EST us Cleveland Ribera MD LAB BLOOD ORDERABLES Final Result [address] [address] from Last 3 Months or Most Recently Relevant to Health Maintenance Insurance PPO PPO PPO PPO PPO PPO PPO AIM INSURANCE Advance Directives For more information, please contact: [phone] (9AM - 5PM Maria Luz/[facility], Friday-Friday) * Full Code (Presumed) (Latest Code Status on File) Date Activated Date Inactivated Comments 05/18/2017 8:19 PM 05/19/2017 1:25 PM Care Teams Rotor Blade Installer Relationship Specialty Start Date End Date [facility] [address] [address] PCP - General Family Medicine 04/30/21 Additional Source Comments The information contained in this document represents components of the legal health record. It is not the complete legal health record.[facility]
--- OUTSIDE RECORDS SUMMARY | 2025-02-18 12:04 | XMS_ITS | Encounter Summary ---
Author Organization [facility] Address [address] [facility] [address] [place] [address] Phone Care Team Providers Care Reimbursement Counselor Name Role Phone Kaushik Alvarenga Primary Care Provider Qasim Shaver MD Primary Care Provide r Encounter Details Date Type Department Care Team (Latest Contact Info) Description 05/19/2017 Transcribe [facility] [address] [place] [address] [address]rd Floor, [address] [place] [address] Biju Irene MD 22 [facility], [address] [address] [email or web address] Chest pain, unspecified type (Primary [...] Conclusion - normal stress test. Esther Mcarthur TAXICAB DRIVER us Biju Irene MD CV STRESS ORDERABLES Final Result documented in this encounter Visit Diagnoses Diagnosis Chest pain, unspecified type- Primary Chest pain, unspecified type documented in this encounter Care Teams Reimbursement Counselor Relationship Specialty Start Date End Date Kaushik Alvarenga DO [address] [place] [email or web address] PCP - General Family Medicine 05/18/17 04/29/21 Qasim Shvaer MD [address] [address] PCP - General Family Medicine 04/30/21 documented as of this encounter Additional Source Comments The information contained in this document represents components of the legal health record. It is not the complete legal health record.[facility]
== END 2025-02-18 12:22 | disposition home or self-care (01) ==
LOC: HO.HOS 11:27
PROVIDERS: PCP Family Medicine
DX: M65.4 Radial styloid tenosynovitis [de Quervain] (principal)
CPT/HCPCS: 20550; 99213

== ENCOUNTER → 2025-02-18 11:27 | Outpatient (BNVA) | payer OTHER, SELFPAY | PROVIDERS: PCP Family Medicine | DX: M65.4 Radial styloid tenosynovitis [de Quervain] (principal) | CPT/HCPCS: 20550; 99212; J1100; J2003 ==